=== PATIENT | male | born 1975 | race Caucasian/White ===

== ENCOUNTER 2017-07-30 14:20 | Inpatient (IN) | payer MEDICAID ==
[~2017-07-30] VITALS: Ht 180.3 cm; Wt 70.6 kg
[2017-07-30] MEDS ORDERED: LEVALBUTEROL HCL 1.25 MG/0.5 ML NEB SOLUTION NEB ONE ×2 (14:45→16:00)
[2017-07-30] MEDS ORDERED: IPRATROPIUM BROMIDE 0.5 MG/2.5 ML NEB SOLUTION NEB ONE (16:00)
[2017-07-30] MEDS ORDERED: 0.9% SODIUM CHLORIDE 15 ML NEB SOLUTION NEB ONE (16:04)
[2017-07-30] MEDS ORDERED: MethylPREDNISolone SOD SUCC 125 MG/2 ML VIAL IVP ONE (16:15)
[2017-07-30 16:27] LABS: EOSINOPHILS % (AUTO) 0 % (1.0-6.0); HEMATOCRIT 44.6 % (41-53); HEMOGLOBIN 15.3 g/dL (13.5-17.5); LYMPHOCYTES # (AUTO) 0.2 K/uL (1.0-4.8); LYMPHOCYTES % (AUTO) 2.4 % (22.0-44.0); MEAN CORPUSCULAR HEMOGLOBIN 31.8 pg (26.0-34.0); MEAN CORPUSCULAR HGB CONC 34.4 G/dL (31.0-37.0); MEAN CORPUSCULAR VOLUME 93 fL (80-100); MONOCYTES # (AUTO) 0.4 K/uL (0.1-1.0); MONOCYTES % (AUTO) 4.4 % (2.0-9.0); NEUTROPHILS # (AUTO) 8.5 K/uL (1.8-7.7); PLATELET COUNT (AUTO) 210 K/uL (150-450); RED BLOOD CELL COUNT(AUTO) 4.83 MIL/uL (4.50-5.90); RED CELL DISTRIBUTION WIDTH 13.1 % (11.5-14.5)
[2017-07-30 16:37] LABS: INFLUENZA TYPE A POSITIVE FOR TYPE A (NEGATIVE); INFLUENZA TYPE B NEGATIVE FOR TYPE B (NEGATIVE)
[2017-07-30] MEDS ORDERED: MAGNESIUM SULFATE 4 GM/WATER 100 ML IV ONE (16:45)
[2017-07-30 16:47] LABS: NEUTROPHILS % (AUTO) 93.2 % (40.0-70.0)
[2017-07-30] MEDS ORDERED: OSELTAMIVIR PHOSPHATE 75 MG CAPSULE PO ONE (17:00)
[2017-07-30 17:04] LABS: LACTIC ACID 2.4 mmol/L (0.4-2.0)
[2017-07-30] MEDS ORDERED: LEVOFLOXACIN 750 MG/D5% WATER 150 ML IV ONE (17:30)
[2017-07-30] MEDS ORDERED: SODIUM CHLORIDE 0.9% 1,000 ML IV ONE ×2 (17:30)
[2017-07-30] MEDS ORDERED: LORazepam 2 MG/ML VIAL IVP ONE (17:30)
[2017-07-30 18:10] LABS: ANION GAP 16 mmol/L (8-16); CALCIUM, TOTAL 9.3 mg/dL (8.8-10.5); CARBON DIOXIDE 24 mmol/L (22-29); CHLORIDE 95 mmol/L (98-107); GLOMERULAR FILTR. RATE CALC > 60 mL/min (>60); GLUCOSE,RANDOM 106 mg/dL (70-110); POTASSIUM 3.8 mmol/L (3.5-5.1); SODIUM SERUM 135 mmol/L (136-145); UREA NITROGEN, BLOOD 14 mg/dL (7-18)
[2017-07-30 18:18] LABS: ALANINE AMINOTRANSFERASE 67 U/L (12-78); ALBUMIN 3.9 g/dL (3.4-5.0); ALKALINE PHOSPHATASE 116 U/L (46-116); ASPARTATE AMINOTRANSFERASE 108 U/L (15-37); TOTAL PROTEIN, SERUM 8.5 g/dL (6.4-8.2)
[2017-07-30 18:29] LABS: BILIRUBIN,TOTAL 1.4 mg/dL (0.1-1.0)
[2017-07-30] MEDS ORDERED: ONDANSETRON HCL 4 MG/2 ML VIAL IVP PRN ×2 (18:45→20:30)
[2017-07-30] MEDS ORDERED: ACETAMINOPHEN 325 MG TABLET PO PRN ×2 (18:45→20:30)
[2017-07-30] MEDS ORDERED: 0.9% SODIUM CHLORIDE 10 ML SYRINGE IVP PRN (18:45)
[2017-07-30] MEDS ORDERED: ALBUTEROL SULFATE 2.5 MG/0.5 ML NEB SOLUTION NEB SCH (19:00)
[2017-07-30] MEDS ORDERED: IPRATROPIUM BROMIDE 0.5 MG/2.5 ML NEB SOLUTION NEB SCH (19:00)
[2017-07-30 19:43] LABS: ABG A-A DIFF O2 97.8 mmHg (10-20.0); ABG BASE EXCESS -5.7 mmol/L (-2.0-3.0); ABG CARBOXYHEMOGLOBIN 1.1 % (0.0-1.5); ABG HCO3 20.7 mmol/L (22.0-26.0); ABG METHEMOGLOBIN 0.4 % (0.0-1.5); ABG OXYGEN CONTENT 19.6 mL/dL (15.0-23.0); ABG OXYGEN SATURATION 98.2 % (95.0-98.0); ABG OXYHEMOGLOBIN 96.7 % (94.0-100.0); ABG PCO2 33 mmHg (35-45); ABG PH 7.386 (7.35-7.450); ABG TOTAL HEMOGLOBIN 14.3 G/dL (12.0-18.0); O2 DEVICE,BLOOD GAS BIPAP (ROOM AIR); PO2, ARTERIAL BG 113.4 mmHg (88.0-96.0); SITE, BLOOD GAS RT RADIAL; SOURCE, BLOOD GAS ARTERIAL; TEMPERATURE, FAHRENHEIT, BG 98.6 FAHREN (96.0-98.6)
[2017-07-30] MEDS ORDERED: 0.9% SODIUM CHLORIDE 5 ML NEB SOLUTION NEB ONE (20:14)
[2017-07-30] MEDS ORDERED: HYDROCODONE/ACETAMINOPHEN 5-325 MG TABLET PO ONE (20:15)
[2017-07-30] MEDS ORDERED: IPRATROPIUM BROMIDE 0.5 MG/2.5 ML NEB SOLUTION NEB PRN (20:30)
[2017-07-30] MEDS ORDERED: BISACODYL 10 MG RECTAL RECTAL SUPPOSITORY PR PRN (20:30)
[2017-07-30] MEDS ORDERED: ALBUTEROL SULFATE 2.5 MG/0.5 ML NEB SOLUTION NEB PRN (20:30)
[2017-07-30] MEDS ORDERED: MORPHINE SULFATE 2 MG/ML SYRINGE IVP PRN (20:30)
[2017-07-30] MEDS ORDERED: ZOLPIDEM TARTRATE 5 MG TABLET PO PRN (20:30)
[2017-07-30] MEDS ORDERED: MAGNESIUM HYDROXIDE SUSPENSION 30 ML UDCUP PO PRN (20:30)
[2017-07-30] MEDS: IPRATROPIUM BROMIDE 0.5 MG/2.5 ML NEB SOLUTION NEB SCH (20:41)
[2017-07-30] MEDS: ALBUTEROL SULFATE 2.5 MG/0.5 ML NEB SOLUTION NEB SCH (20:41)
[2017-07-30] MEDS: BENZONATATE 100 MG CAPSULE PO SCH (20:44)
[2017-07-30] MEDS: DOCUSATE SODIUM 100 MG CAPSULE PO SCH (20:44)
[2017-07-30] MEDS: OSELTAMIVIR PHOSPHATE 75 MG CAPSULE PO SCH (20:44)
[2017-07-30] MEDS: CefTRIAXone 1 GM/DEXTROSE 50 ML IV SCH (20:45)
[2017-07-30] MEDS: GuaiFENesin SR 600 MG ER TABLET PO SCH (21:30)
[2017-07-31] VITALS (7 sets, daily range): BP systolic 112–135; BP diastolic 68–84
[2017-07-31] MEDS: MethylPREDNISolone SOD SUCC 125 MG/2 ML VIAL IVP SCH ×5 (00:03→23:38)
[2017-07-31] MEDS: HEPARIN SODIUM,PORCINE 5,000 UNITS/ML VIAL SQ SCH ×4 (00:03→23:38)
[2017-07-31] MEDS: IPRATROPIUM BROMIDE 0.5 MG/2.5 ML NEB SOLUTION NEB SCH ×4 (01:13→20:44)
[2017-07-31] MEDS: ALBUTEROL SULFATE 2.5 MG/0.5 ML NEB SOLUTION NEB SCH ×4 (01:13→20:44)
[2017-07-31] MEDS ORDERED: INFLUENZA VIRUS VACCINE QVS 2017-18 (3YR+)/PF 60 MCG/0.5 ML SYRINGE IM ONE (01:30)
[2017-07-31 07:39] LABS: EOSINOPHILS % (AUTO) 0 % (1.0-6.0); HEMOGLOBIN 13.7 g/dL (13.5-17.5); LYMPHOCYTES # (AUTO) 0.2 K/uL (1.0-4.8); LYMPHOCYTES % (AUTO) 3.2 % (22.0-44.0); MEAN CORPUSCULAR HEMOGLOBIN 31.7 pg (26.0-34.0); MEAN CORPUSCULAR HGB CONC 34.1 G/dL (31.0-37.0); MEAN CORPUSCULAR VOLUME 93 fL (80-100); MONOCYTES # (AUTO) 0.1 K/uL (0.1-1.0); MONOCYTES % (AUTO) 2.5 % (2.0-9.0); NEUTROPHILS # (AUTO) 5.6 K/uL (1.8-7.7); PLATELET COUNT (AUTO) 214 K/uL (150-450)
[2017-07-31 07:51] LABS: ALANINE AMINOTRANSFERASE 50 U/L (12-78); ALBUMIN 3.2 g/dL (3.4-5.0); ALKALINE PHOSPHATASE 94 U/L (46-116); ANION GAP 11 mmol/L (8-16); ASPARTATE AMINOTRANSFERASE 51 U/L (15-37); BILIRUBIN,TOTAL 0.6 mg/dL (0.1-1.0); CARBON DIOXIDE 24 mmol/L (22-29); CHLORIDE 102 mmol/L (98-107); CREATININE 0.95 mg/dL (0.60-1.30); GLOMERULAR FILTR. RATE CALC > 60 mL/min (>60); GLUCOSE,RANDOM 160 mg/dL (70-110); POTASSIUM 4.1 mmol/L (3.5-5.1); SODIUM SERUM 137 mmol/L (136-145); TOTAL PROTEIN, SERUM 7.4 g/dL (6.4-8.2); UREA NITROGEN, BLOOD 10 mg/dL (7-18)
[2017-07-31] MEDS: BENZONATATE 100 MG CAPSULE PO SCH ×3 (07:59→20:47)
[2017-07-31] MEDS: HYDROCODONE/ACETAMINOPHEN 5-325 MG TABLET PO PRN (07:59)
[2017-07-31] MEDS: PANTOPRAZOLE SODIUM 40 MG DR TABLET PO SCH (08:00)
[2017-07-31] MEDS: DOCUSATE SODIUM 100 MG CAPSULE PO SCH ×2 (08:02→20:47)
[2017-07-31 08:14] LABS: NEUTROPHILS % (AUTO) 94.3 % (40.0-70.0)
[2017-07-31] MEDS: OSELTAMIVIR PHOSPHATE 75 MG CAPSULE PO SCH ×2 (09:15→20:47)
[2017-07-31] MEDS: GuaiFENesin SR 600 MG ER TABLET PO SCH ×2 (09:15→20:47)
[2017-07-31] MEDS: AZITHROMYCIN 500 MG/NS 250 ML IV SCH (09:16)
[2017-07-31] MEDS ORDERED: SODIUM CHLORIDE 0.9% 250 ML IV ONE (09:17)
[2017-07-31] MEDS: BUDESONIDE 0.5 MG/2 ML NEB SOLUTION NEB SCH (20:44)
[2017-07-31] MEDS: CefTRIAXone 1 GM/DEXTROSE 50 ML IV SCH (20:47)
[2017-08-01] MEDS: ALBUTEROL SULFATE 2.5 MG/0.5 ML NEB SOLUTION NEB SCH ×4 (02:34→20:30)
[2017-08-01] MEDS: IPRATROPIUM BROMIDE 0.5 MG/2.5 ML NEB SOLUTION NEB SCH ×4 (02:34→20:30)
[2017-08-01 04:50] VITALS: BP 135/77
[2017-08-01] MEDS: MethylPREDNISolone SOD SUCC 125 MG/2 ML VIAL IVP SCH ×4 (06:38→23:44)
[2017-08-01 07:24] VITALS: BP 135/87
[2017-08-01] MEDS: HEPARIN SODIUM,PORCINE 5,000 UNITS/ML VIAL SQ SCH ×3 (08:00→23:44)
[2017-08-01] MEDS: BUDESONIDE 0.5 MG/2 ML NEB SOLUTION NEB SCH ×2 (08:32→20:30)
[2017-08-01] MEDS: DOCUSATE SODIUM 100 MG CAPSULE PO SCH ×2 (09:00→21:33)
[2017-08-01] MEDS: BENZONATATE 100 MG CAPSULE PO SCH ×3 (09:15→21:33)
[2017-08-01] MEDS: OSELTAMIVIR PHOSPHATE 75 MG CAPSULE PO SCH ×2 (09:15→21:33)
[2017-08-01] MEDS: PANTOPRAZOLE SODIUM 40 MG DR TABLET PO SCH (09:15)
[2017-08-01] MEDS: AZITHROMYCIN 500 MG/NS 250 ML IV SCH (09:15)
[2017-08-01 11:25] VITALS: BP 135/80
[2017-08-01] MEDS ORDERED: SODIUM CHLORIDE 0.9% 250 ML IV ONE (12:54)
[2017-08-01] MEDS: GuaiFENesin SR 600 MG ER TABLET PO SCH ×2 (14:10→21:33)
[2017-08-01] MEDS: HYDROCODONE/ACETAMINOPHEN 5-325 MG TABLET PO PRN ×2 (14:10→21:33)
[2017-08-01 15:19] VITALS: BP 123/76
[2017-08-01 20:34] VITALS: BP 129/78
[2017-08-01] MEDS: CefTRIAXone 1 GM/DEXTROSE 50 ML IV SCH (21:33)
[2017-08-02 00:29] VITALS: BP 119/75
[2017-08-02] MEDS: ALBUTEROL SULFATE 2.5 MG/0.5 ML NEB SOLUTION NEB SCH ×4 (02:18→20:26)
[2017-08-02] MEDS: IPRATROPIUM BROMIDE 0.5 MG/2.5 ML NEB SOLUTION NEB SCH ×4 (02:18→20:26)
[2017-08-02 04:50] VITALS: BP 127/67
[2017-08-02] MEDS: MethylPREDNISolone SOD SUCC 125 MG/2 ML VIAL IVP SCH ×4 (06:54→23:43)
[2017-08-02] MEDS: HEPARIN SODIUM,PORCINE 5,000 UNITS/ML VIAL SQ SCH ×4 (08:00→23:51)
[2017-08-02 08:08] VITALS: BP 132/70
[2017-08-02 08:12] LABS: EOSINOPHILS % (AUTO) 0 % (1.0-6.0); HEMATOCRIT 43.9 % (41-53); HEMOGLOBIN 14.5 g/dL (13.5-17.5); LYMPHOCYTES # (AUTO) 0.3 K/uL (1.0-4.8); LYMPHOCYTES % (AUTO) 4.2 % (22.0-44.0); MEAN CORPUSCULAR HEMOGLOBIN 31.1 pg (26.0-34.0); MEAN CORPUSCULAR VOLUME 94 fL (80-100); MONOCYTES # (AUTO) 0.3 K/uL (0.1-1.0); MONOCYTES % (AUTO) 4.2 % (2.0-9.0); NEUTROPHILS # (AUTO) 7.1 K/uL (1.8-7.7); PLATELET COUNT (AUTO) 278 K/uL (150-450); RED BLOOD CELL COUNT(AUTO) 4.66 MIL/uL (4.50-5.90); RED CELL DISTRIBUTION WIDTH 12.9 % (11.5-14.5)
[2017-08-02] MEDS ORDERED: SODIUM CHLORIDE 0.9% 100 ML ONE (08:12)
[2017-08-02] MEDS: BENZONATATE 100 MG CAPSULE PO SCH ×3 (08:15→20:49)
[2017-08-02] MEDS: AZITHROMYCIN 500 MG/NS 250 ML IV SCH (08:15)
[2017-08-02] MEDS: PANTOPRAZOLE SODIUM 40 MG DR TABLET PO SCH (08:16)
[2017-08-02] MEDS: DOCUSATE SODIUM 100 MG CAPSULE PO SCH ×2 (08:16→20:49)
[2017-08-02] MEDS: GuaiFENesin SR 600 MG ER TABLET PO SCH ×2 (08:16→20:53)
[2017-08-02] MEDS: OSELTAMIVIR PHOSPHATE 75 MG CAPSULE PO SCH ×2 (08:18→20:50)
[2017-08-02 08:22] LABS: NEUTROPHILS % (AUTO) 91.5 % (40.0-70.0)
[2017-08-02 08:59] LABS: ANION GAP 8 mmol/L (8-16); CALCIUM, TOTAL 9.2 mg/dL (8.8-10.5); CARBON DIOXIDE 30 mmol/L (22-29); CHLORIDE 103 mmol/L (98-107); CREATININE 0.99 mg/dL (0.60-1.30); GLOMERULAR FILTR. RATE CALC > 60 mL/min (>60); GLUCOSE,RANDOM 106 mg/dL (70-110); POTASSIUM 3.8 mmol/L (3.5-5.1); SODIUM SERUM 141 mmol/L (136-145); UREA NITROGEN, BLOOD 9 mg/dL (7-18)
[2017-08-02 11:21] VITALS: BP 122/80
[2017-08-02 15:48] VITALS: BP 127/78
[2017-08-02] MEDS: BUDESONIDE 0.5 MG/2 ML NEB SOLUTION NEB SCH ×2 (16:50→21:19)
[2017-08-02 19:50] VITALS: BP 132/86
[2017-08-02] MEDS: HYDROCODONE/ACETAMINOPHEN 5-325 MG TABLET PO PRN (20:50)
[2017-08-02] MEDS: CefTRIAXone 1 GM/DEXTROSE 50 ML IV SCH (23:42)
[2017-08-03 00:04] VITALS: BP 128/79
[2017-08-03] MEDS: HYDROCODONE/ACETAMINOPHEN 5-325 MG TABLET PO PRN (01:17)
[2017-08-03] MEDS: ALBUTEROL SULFATE 2.5 MG/0.5 ML NEB SOLUTION NEB SCH ×3 (02:46→14:25)
[2017-08-03] MEDS: IPRATROPIUM BROMIDE 0.5 MG/2.5 ML NEB SOLUTION NEB SCH ×3 (02:46→14:25)
[2017-08-03 04:40] VITALS: BP 132/84
[2017-08-03] MEDS: MethylPREDNISolone SOD SUCC 125 MG/2 ML VIAL IVP SCH ×2 (07:08→12:14)
[2017-08-03 07:57] LABS: BASOPHILS % (AUTO) 0.1 % (0.0-2.0); EOSINOPHILS % (AUTO) 0.02 % (1.0-6.0); HEMATOCRIT 40.6 % (41-53); HEMOGLOBIN 13.7 g/dL (13.5-17.5); LYMPHOCYTES # (AUTO) 0.4 K/uL (1.0-4.8); LYMPHOCYTES % (AUTO) 5.8 % (22.0-44.0); MEAN CORPUSCULAR HEMOGLOBIN 31.5 pg (26.0-34.0); MEAN CORPUSCULAR HGB CONC 33.8 G/dL (31.0-37.0); MEAN CORPUSCULAR VOLUME 93 fL (80-100); MONOCYTES # (AUTO) 0.2 K/uL (0.1-1.0); MONOCYTES % (AUTO) 3.7 % (2.0-9.0); NEUTROPHILS # (AUTO) 5.7 K/uL (1.8-7.7); PLATELET COUNT (AUTO) 272 K/uL (150-450); RED BLOOD CELL COUNT(AUTO) 4.35 MIL/uL (4.50-5.90); RED CELL DISTRIBUTION WIDTH 13.1 % (11.5-14.5)
[2017-08-03] MEDS: HEPARIN SODIUM,PORCINE 5,000 UNITS/ML VIAL SQ SCH (08:00)
[2017-08-03 08:01] LABS: NEUTROPHILS % (AUTO) 90.5 % (40.0-70.0)
[2017-08-03] MEDS: AZITHROMYCIN 500 MG/NS 250 ML IV SCH (08:09)
[2017-08-03] MEDS: PANTOPRAZOLE SODIUM 40 MG DR TABLET PO SCH (08:10)
[2017-08-03] MEDS: BENZONATATE 100 MG CAPSULE PO SCH (08:10)
[2017-08-03] MEDS: OSELTAMIVIR PHOSPHATE 75 MG CAPSULE PO SCH (08:10)
[2017-08-03] MEDS: GuaiFENesin SR 600 MG ER TABLET PO SCH (08:11)
[2017-08-03] MEDS: DOCUSATE SODIUM 100 MG CAPSULE PO SCH (08:11)
[2017-08-03 08:25] VITALS: BP 117/67
[2017-08-03] MEDS: BUDESONIDE 0.5 MG/2 ML NEB SOLUTION NEB SCH (09:00)
[2017-08-03] MEDS ORDERED: SODIUM CHLORIDE 0.9% 100 ML ONE (09:02)
[2017-08-03 09:06] LABS: ANION GAP 8 mmol/L (8-16); CARBON DIOXIDE 28 mmol/L (22-29); CHLORIDE 101 mmol/L (98-107); GLOMERULAR FILTR. RATE CALC > 60 mL/min (>60); GLUCOSE,RANDOM 109 mg/dL (70-110); POTASSIUM 3.8 mmol/L (3.5-5.1); SODIUM SERUM 137 mmol/L (136-145); UREA NITROGEN, BLOOD 11 mg/dL (7-18)
[2017-08-03 11:55] VITALS: BP 133/76
[2017-08-03] MEDS ORDERED: ALBU8HFA IH (14:37)
[2017-08-03] MEDS ORDERED: TIOT185 IH (14:38)
[2017-08-03] MEDS ORDERED: AZIT250T9 PO (14:39)
[2017-08-03] MEDS ORDERED: OSEL75 PO (14:40)
[2017-08-03] MEDS ORDERED: PRED10 PO (14:43)
== END 2017-08-03 15:15 | disposition home or self-care (01) | DRG 720 ==
LOC: EMS 14:21 → 5S 23:07
PROVIDERS: ADMIT Internal Medicine; ATTEND Internal Medicine
DX: A41.9 Sepsis, unspecified organism (principal); J10.00 Influenza due to other identified influenza virus with unspecified type of pneumonia; J45.901 Unspecified asthma with (acute) exacerbation; R74.0 Nonspecific elevation of levels of transaminase and lactic acid dehydrogenase [LDH]; J18.9 Pneumonia, unspecified organism
CPT/HCPCS: 71046; 71250; 82805; 83605; 87040; 87804; 93005; 94640; 94644; 94660; 96365; 96366; 96375; 99291; J0456; J0696; J1644; J1956; J2060; J2270; J2930; J3475; J7030; J7050